=== PATIENT | female | born 1950 | race Two or more races ===

== ENCOUNTER 2020-01-09 09:39 | Outpatient (CLI) | payer OTHER ==
[~2020-01-09 09:39] MED LIST: AMBIEN CR12.5 MG/BL PO; BONIVA3 MG/3 ML; CLONAZEPAM1 MG PO; FOSAMAX70 MG PO; LEVETIRACETAM 500 MG/5 ML IV; LEVOTHYROXINE50 MCG; LIPITOR20 MG PO; LYRICA100 MG PO; PROTONIX40 MG PO; ZOLOFT100 MG PO
== END 2020-01-09 09:41 | disposition home or self-care (01) ==
LOC: SONOGRAMA 09:39
PROVIDERS: ATTEND Pathology Anatomic Pathology & Clinical Pathology
DX: E04.1 Nontoxic single thyroid nodule (principal)